=== PATIENT | female | born 1995 | race Caucasian/White ===

== ENCOUNTER 2017-01-06 16:21 | Inpatient (IN) | payer BC ==
[~2017-01-06] VITALS: Ht 157.5 cm; Wt 80.3 kg
[2017-01-06 18:51] VITALS: Ht 157.5 cm; Wt 80.3 kg
[2017-01-06 18:52] VITALS: BP 107/59; PULSE 98; RESP 20
[2017-01-06 18:59] VITALS: PULSE 98
[2017-01-06 19:40] VITALS: BP 107/59; RESP 15
[2017-01-06] MEDS ORDERED: no medications (19:41)
[2017-01-06 20:28] VITALS: PULSE 98
[2017-01-06] MEDS ORDERED: morphine 2 MG INJ IV PRN (20:30)
[2017-01-06] MEDS: SOD CHLORIDE 0.9% 1,000 ML IV SCH (21:20)
[2017-01-06] MEDS: PIPER-TAZO 3.375 GM IV (PMX) 100 ML IVPB SCH (21:20)
[2017-01-06] MEDS: ACETAMINOPHEN 325 MG TAB PO PRN (22:45)
[2017-01-07] VITALS (19 sets, daily range): BP systolic 92–137; BP diastolic 40–66; PULSE 111–153; RESP 15–22
[2017-01-07] MEDS: PIPER-TAZO 3.375 GM IV (PMX) 100 ML IVPB SCH ×5 (00:35→23:20)
[2017-01-07] MEDS: ACETAMINOPHEN 325 MG TAB PO PRN ×3 (05:06→17:47)
[2017-01-07] MEDS: SOD CHLORIDE 0.9% 1,000 ML IV SCH ×3 (05:07→23:20)
[2017-01-07] MEDS: PANTOPRAZOLE 40 MG INJ IV SCH (05:07)
[2017-01-07 06:46] LABS: ADD SCAN DIFF NO
[2017-01-07 06:51] LABS: ABNORMAL IP MESSAGE 1; BASOPHILS % 0.1 % (0.0-2.0); EOSINOPHILS % 0.1 % (0.0-7.0); HEMATOCRIT 30.5 % (37.0-47.0); HEMOGLOBIN 10.1 g/dl (12.0-16.0); LYMPHOCYTES # 1.3 10^3/ul (0.8-2.9); LYMPHOCYTES % 6.5 % (15.0-51.0); MEAN CORPUSCULAR HEMOGLOBIN 29.4 pg (29.0-33.0); MEAN CORPUSCULAR HGB CONC 33.1 g/dl (32.0-37.0); MEAN CORPUSCULAR VOLUME 88.7 fl (82.0-101.0); MEAN PLATELET VOLUME 10.1 fl (7.4-10.4); MONOCYTE # 2.3 10^3/ul (0.3-0.9); MONOCYTES % 11.1 % (0.0-11.0); NEUTROPHIL # 16.5 10^3/ul (1.6-7.5); PLATELET COUNT 237 10^3/UL (140-415); RED BLOOD COUNT 3.44 10^6/ul (4.20-5.40); RED CELL DISTRIBUTION WIDTH 13.8 % (11.5-14.5); WHITE BLOOD COUNT 20.6 10^3/ul (4.8-10.8)
[2017-01-07 07:13] LABS: ALBUMIN 2.6 g/dl (3.3-4.9)
[2017-01-07 07:16] LABS: ALBUMIN/GLOBULIN RATIO 0.83; BILIRUBIN,INDIRECT 0.4 mg/dl (0-1.1); BILIRUBIN,TOTAL 0.4 mg/dl (0.2-1.3); CREATININE 0.56 mg/dl (0.44-1.00); TOTAL PROTEIN 5.7 g/dl (6.1-8.1)
[2017-01-07 07:17] LABS: CALCIUM 7.5 mg/dl (8.4-10.2)
--- NOTE | 2017-01-07 13:15 | HP ---
Date/Time of Note Date/Time of Note DATE: 01/07/17 TIME: 13:03 Assessment/Plan VTE Prophylaxis VTE Prophylaxis Intervention: ambulation Lines/Catheters IV C[facility]ter Type [facility]from [facility] Peripheral IV Urinary Cath still in place: No Assessment/Plan Chief Complaint/Hosp Course 1. Sepsis due to UTI 2. Hypokalemia 3. Obesity 4. tachycardia Problems: Assessment/Plan 1. Continue zosyn, add Rocephin IV q 24 hours 2. Continue IV hydration 3. Continue telemetry monitoring 4. K replacement 5. Monitor lact acid and WBC tomorrow HPI/ROS Admit Date/Time Admit Date/Time Jan 06, 2017 at 18:31 Hx of Present Illness pt reported that she started to feel pain in left hypochondrial area on . Then patient was seen in [facility] ED on 01/06/17 with left side pain. She was started on IV fluids and Rocephin. Per insurance request she was transferred and admitted to [facility] later ROS Constitutional: chills Eyes: no complaints ENT: no complaints Respiratory: no complaints Cardiovascular: no complaints (rarely), palpitations Gastrointestinal: no complaints Genitourinary: dysuria, flank pain Musculoskeletal: no complaints Skin: no complaints Neurologic: no complaints Endocrine: no complaints Lymphatic: no complaints Psychological: no complaints Immunologic: no complaints PMH/Family/Social Past Medical History Medical History: no pertinent history Past Surgical History Past Surgical Hx: no surgical history Family History Significant Family History: hypertension Social History has a child Alcohol Use: none Smoking Status: Never smoker Drug Use: none Exam/Review of Systems Vital Signs Vitals Vital Signs Date Time Temp Pulse Resp B/P Pulse Ox O2 Delivery O2 Flow Rate FiO2 01/07/17 12:49 102.7 153 18 120/60 98 Room Air Intake and Output 01/06/17 01/06/17 01/07/17 15:00 23:00 07:00 Intake Total 2100 ml Balance 2100 ml Exam Constitutional: alert, oriented, well developed Psych: nl mood/affect, no complaints Head: normocephalic Eyes: nl conjunctiva ENMT: nl external ears & nose Neck: supple Respiratory: clear to auscultation Cardiovascular: other (tachycardia), regular rate and rhythm Gastrointestinal: soft Genitourinary - Female: CVA tenderness (left), nl external genitalia Musculoskeletal: nl extremities to inspection Extremities: normal pulses Neurological: G[employer] IN[employer]IGATOR II-XII intact, nl mental status Skin: nl turgor Lymph: nl lymph nodes Labs Result Diagram: 01/07/1761401/07/17614 Medications Medications Current Medications Acetaminophen 650 mg 650 mg Q6H PRN PO PAIN AND OR ELEVATED TEMP Last administered on 01/07/17 11:39; Admin Dose 650 MG; Start 01/06/17 at 20:30 Sodium Chloride (NS) 1,000 ml @ 100 mls/hr Q10H IV Last administered on 05:07; Admin Dose 100 MLS/HR; Start 01/06/17 at 20:30 Morphine Sulfate (morphine) 2 mg Q4H PRN IV PAIN; Start 01/06/17 at 20:30 Pantoprazole 40 mg 40 mg DAILY@06 IV Last administered on 01/07/17 05:07; Admin Dose 40 MG; Start 01/07/17 at 06:00 Piperacillin Sod/ Tazobactam Sod (Zosyn 3.375gm/ 100 ml (Pmx)) 100 ml @ 200 mls /hr Q6 IVPB Last administered on 01/07/17 11:40; Admin Dose 200 MLS/HR; Start 01/06/17 at 21:30 ARGELIA AL Jan 07, 2017 13:13
[2017-01-07] MEDS ORDERED: LEVOFLOXACIN 500MG/D5W (PMX) 100 ML IVPB SCH (13:30)
[2017-01-07] MEDS ORDERED: POTASSIUM CHLORIDE (SR) 20 MEQ TAB PO STA (16:11)
[2017-01-07] MEDS ORDERED: SOD CHLORIDE 0.9% 500 ML IV ONE (16:30)
[2017-01-07] MEDS ORDERED: LORAZEPAM 2 MG INJ IV ONE (16:30)
[2017-01-07] MEDS ORDERED: TOBRAMYCIN 80 MG INJ IV ONE (18:00)
[2017-01-07] MEDS ORDERED: TOBRAMYCIN 100 MG in SOD CHLORIDE 0.9% 100 ML IVPB SCH (18:30)
[2017-01-07 21:22] LABS: FREE T3 3.69 pg/ml (2.77-5.27)
[2017-01-08] VITALS (12 sets, daily range): BP systolic 103–119; BP diastolic 58–72; PULSE 96–132; RESP 16–20
[2017-01-08] MEDS: METOPROLOL 5 MG INJ IV PRN ×2 (03:37→12:16)
[2017-01-08] MEDS: ACETAMINOPHEN 325 MG TAB PO PRN ×2 (03:37→17:14)
[2017-01-08] MEDS: PIPER-TAZO 3.375 GM IV (PMX) 100 ML IVPB SCH ×3 (04:57→17:29)
[2017-01-08] MEDS: PANTOPRAZOLE 40 MG INJ IV SCH (04:57)
[2017-01-08 06:20] LABS: ADD UMIC YES; URINE BILIRUBIN (Dip) NEGATIVE (NEGATIVE); URINE BLOOD (Dip) TRACE (NEGATIVE); URINE COLOR LT. YELLOW (YELLOW); URINE GLUCOSE (Dip) NEGATIVE (NEGATIVE); URINE KETONES (Dip) 15 (NEGATIVE); URINE LEUKOCYTE ESTERASE (Dip) NEGATIVE (NEGATIVE); URINE NITRITE (Dip) NEGATIVE (NEGATIVE); URINE TOTAL PROTEIN (Dip) NEGATIVE (NEGATIVE); URINE UROBILINOGEN (Dip) 0.2 E.U./dL (0.1-1.0)
--- NOTE | 2017-01-08 06:54 | CONS ---
DATE OF ADMISSION: 01/07/2017 DATE OF CONSULTATION: 01/07/2017 TYPE OF CONSULTATION: Cardiology REASON FOR CONSULTATION: Tachyarrhythmia. REQUESTING PHYSICIAN: Pasquale Gusman MD HISTORY OF PRESENT ILLNESS: Ms. Kim is a 21-year-old female without significant past medical history who initially presented to an outside hospital , [facility], with complaints of flank pain on the left side. At the outside hospital, the patient was noted to have a temperature of 102.9, pulse 150, blood pressure 137/74, respiratory rate 20. The patient's electrocardiogram revealed rhythm most consistent with sinus tachycardia, rate of 143, normal axis, normal intervals, nonspecific ST-T abnormalities diffusely. The patient was diagnosed with a kidney infection after a positive UA treated with levofloxacin and ceftriaxone and then transferred to [facility] due to insurance reasons. Since admit to the [facility], the patient has had recurrent fevers as high as 103.2. In this setting, the patient has had tachycardia up to 150s, as high as 153 documented. At this time, patient denies chest pain, shortness of breath, prior palpitations, syncope or cardiac pathology. PAST MEDICAL HISTORY: As above in HPI. MEDICATIONS CURRENTLY IN HOSPITAL: 1. Levofloxacin 100 mg. 2. Protonix 40 mg IV daily. 3. Zosyn q.6 IV 4. Tylenol p.r.n. 5. IV fluid hydration at 100 mL/hour. 6. Morphine p.r.n. ALLERGIES: NO KNOWN DRUG ALLERGIES. SOCIAL HISTORY: No tobacco, ETOH or illicit drug use. FAMILY HISTORY: Negative for sudden cardiac or early CAD. REVIEW OF SYSTEMS: As above in HPI. CONSTITUTIONAL: Positive fevers and chills. PULMONARY: No current shortness of breath. CARDIOVASCULAR: No current chest pain, no palpitations. GASTROINTESTINAL: No vomiting. GENITOURINARY: Flank pain. PSYCHIATRIC: No documented psych history. NEUROLOGIC: No documented history of CVA. ENDOCRINE: No documented history of thyroid disease. PHYSICAL EXAMINATION: VITAL SIGNS: Temperature current 102.7, blood pressure 120/60, pulse most recently in the 110 to 115 range, consistent with sinus tachycardia, saturating 98% on room air. GENERAL: The patient is alert, awake, in no acute distress. NECK: JVP approximately 8 cm water. CHEST: Fair air movement throughout. HEART: Tachycardic, regular rhythm, normal S1, S2, a I/ systolic murmur, nondisplaced PMI. ABDOMEN: Positive bowel sounds, soft. No CVA tenderness. EXTREMITIES: No edema, 1+ pulses bilaterally posterior tibial. LABORATORIES: As above in HPI, with most recent from today, sodium 137, potassium 3.0, creatinine 0.56, BUN 6. AST 15, ALT 26. White blood cell count 20.6, hemoglobin 10.1, platelet count 237. IMAGING STUDIES: No imaging studies for my review at this time. ECG: As above in HPI. No further electrocardiograms for my review at this time. IMPRESSION: 1. Tachyarrhythmia, most consistent with sinus tachycardia at this time in the setting of fevers and pain. 2. Abnormal electrocardiogram from outside hospital with nonspecific ST-T abnormalities. 3. Probable pyelonephritis. 4. Anemia. 5. Leukocytosis. 6. Hypokalemia. RECOMMENDATIONS: 1. At this time, would maintain the patient on telemetry monitoring to follow rhythm and rate control closely. 2. To have aggressive treatment of the patient's fevers. 3. Continue the patient's IV fluid hydration and we will give an additional bolus of IV fluid. 4. We will check a 2D echocardiogram to further reassess the patient's ejection fraction, wall motion and any major valve abnormalities. 5. Check a TSH to be sure that there is no concurrent subclinical hyperthyroidism contributing to any tachyarrhythmias. 6. We will replete the patient's potassium. 7. We will continue the patient's antibiotics and follow up all culture data. 8. We will additionally check a fasting lipid panel for general risk stratification. 9. We will continue to check serial EKGs, thus an EKG in the morning, EKG for any complaints of chest pain or change in rhythm. Thank you for allowing me to take part in the care of this patient. I will continue to follow along very closely with you with further recommendations to be made as the patient progresses through her inpatient hospital clinical course. Dictated By: PHU DELACRUZ/CECILIA Conf#: [id number] DID#: [id number] CC: PASQUALE GUSMAN MD;*EndCC* MTDD
[2017-01-08 07:00] LABS: BACTERIA,URINE FEW
[2017-01-08 07:12] LABS: ADD SCAN DIFF NO
[2017-01-08 07:29] LABS: ABNORMAL IP MESSAGE 1; BASOPHIL # 0.1 10^3/ul (0.0-0.1); BASOPHILS % 0.2 % (0.0-2.0); EOSINOPHILS # 0.1 10^3/ul (0.0-0.5); EOSINOPHILS % 0.4 % (0.0-7.0); HEMATOCRIT 29.4 % (37.0-47.0); HEMOGLOBIN 9.5 g/dl (12.0-16.0); LYMPHOCYTES # 3.8 10^3/ul (0.8-2.9); LYMPHOCYTES % 17.7 % (15.0-51.0); MEAN CORPUSCULAR HGB CONC 32.3 g/dl (32.0-37.0); MEAN CORPUSCULAR VOLUME 89.6 fl (82.0-101.0); MEAN PLATELET VOLUME 10.4 fl (7.4-10.4); MONOCYTE # 2.5 10^3/ul (0.3-0.9); MONOCYTES % 11.5 % (0.0-11.0); NEUTROPHILS % 69.6 % (39.0-77.0); PLATELET COUNT 283 10^3/UL (140-415); RED BLOOD COUNT 3.28 10^6/ul (4.20-5.40); RED CELL DISTRIBUTION WIDTH 13.9 % (11.5-14.5); WHITE BLOOD COUNT 21.7 10^3/ul (4.8-10.8)
[2017-01-08 07:41] LABS: CALCIUM 8.2 mg/dl (8.4-10.2); CREATININE 0.61 mg/dl (0.44-1.00); POTASSIUM 4.2 mmol/L (3.5-5.1)
[2017-01-08 07:53] LABS: CHOL/HDL RATIO 4.9 RATIO
[2017-01-08] MEDS: SOD CHLORIDE 0.9% 1,000 ML IV SCH ×2 (12:15→20:55)
--- NOTE | 2017-01-08 12:52 | PN ---
Date/Time of Note Date/Time of Note DATE: 01/08/17 TIME: 12:34 Assessment/Plan VTE Prophylaxis VTE Prophylaxis Intervention: ambulation Lines/Catheters IV C[facility]ter Type (from [facility]): Peripheral IV Urinary Cath still in place: No Assessment/Plan Chief Complaint/Hosp Course 1. Sepsis due to unknown source 2. Obesity 3. tachycardia Problems: Assessment/Plan 1. Continue telemetry monitoring 2. Continue a/b, Dr Varela for ID consult 3. CT scan of abdomen without contrast to find source of sepsis, pt is not 4. Chest X ray 5. LAbs inc lactic acid tomorrow Subjective 24 Hr Interval Summary Constitutional: improved, no complaints Respiratory: no complaints Cardiovascular: no complaints Genitourinary: no complaints Musculoskeletal: no complaints Exam/Review of Systems Vital Signs Vitals Vital Signs Date Time Temp Pulse Resp B/P Pulse Ox O2 Delivery O2 Flow Rate FiO2 01/08/17 12:15 132 01/08/17 11:21 98.1 18 112/62 96 01/08/17 03:34 Room Air Intake and Output 01/07/17 01/07/17 01/08/17 15:00 23:00 07:00 Intake Total 2200 ml 2382.5 ml Balance 2200 ml 2382.5 ml Exam Constitutional: alert, oriented Psych: no complaints Head: normocephalic Eyes: nl conjunctiva ENMT: nl external ears & nose Neck: supple Respiratory: clear to auscultation Cardiovascular: other (tachycardia), regular rate and rhythm Gastrointestinal: soft Genitourinary - Female: nl external genitalia Musculoskeletal: nl extremities to inspection Results Result Diagram: 01/08/17 0620 01/08/17 0620 Results 24 hrs Laboratory Tests Test 01/07/17 14:00 01/07/17 19:50 01/07/17 20:35 01/08/17 06:20 Lactic Acid Level 1.6 0.9 Thyroid Stimulating Hormone (TSH) 0.118 L Urine Color LT. YELLOW Urine Clarity CLEAR Urine pH 6.5 Urine Specific [place] 1.010 Urine Ketones 15 Urine Nitrite NEGATIVE Urine Bilirubin NEGATIVE Urine Urobilinogen 0.2 E.U./dL Urine Leukocyte Esterase NEGATIVE Urine Microscopic RBC 2-5 Urine Microscopic WBC 2-5 Urine Epithelial Cells FEW Urine Bacteria FEW Urine Hemoglobin TRACE Urine Glucose NEGATIVE Urine Total Protein NEGATIVE Free Thyroxine 1.53 Thyroxine (T4) 8.1 Free Triiodothyronine (T3) pg/mL 3.69 White Blood Count 21.7 H Red Blood Count 3.28 L Hemoglobin 9.5 L Hematocrit 29.4 L Mean Corpuscular Volume 89.6 Mean Corpuscular Hemoglobin 29.0 Mean Corpuscular Hemoglobin Concent 32.3 Red Cell Distribution Width 13.9 Platelet Count 283 Mean Platelet Volume 10.4 Neutrophils % 69.6 Lymphocytes % 17.7 Monocytes % 11.5 H Eosinophils % 0.4 Basophils % 0.2 Nucleated Red Blood Cells % 0.0 Neutrophils # 15.0 H Lymphocytes # 3.8 H Monocytes # 2.5 H Eosinophils # 0.1 Basophils # 0.1 Nucleated Red Blood Cells # 0.0 Sodium Level 137 Potassium Level 4.2 Chloride Level 110 Carbon Dioxide Level 24 Anion Gap 7 L Blood Urea Nitrogen 5 L Creatinine 0.61 Glucose Level 106 Calcium Level 8.2 L Triglycerides Level 88 Cholesterol Level 109 LDL Cholesterol, Calculated 69 HDL Cholesterol 22 L Cholesterol/HDL Ratio 4.9 Medications Medications Current Medications Acetaminophen 650 mg 650 mg Q6H PRN PO PAIN AND OR ELEVATED TEMP Last administered on 01/08/17 03:37; Admin Dose 650 MG; Start 01/06/17 at 20:30 Sodium Chloride (NS) 1,000 ml @ 100 mls/hr Q10H IV Last administered on 12:15; Admin Dose 100 MLS/HR; Start 01/06/17 at 20:30 Morphine Sulfate (morphine) 2 mg Q4H PRN IV PAIN; Start 01/06/17 at 20:30 Pantoprazole 40 mg 40 mg DAILY@06 IV Last administered on 01/08/17 04:57; Admin Dose 40 MG; Start 01/07/17 at 06:00 Piperacillin Sod/ Tazobactam Sod (Zosyn 3.375gm/ 100 ml (Pmx)) 100 ml @ 200 mls /hr Q6 IVPB Last administered on 01/08/17 11:25; Admin Dose 200 MLS/HR; Start 01/06/17 at 21:30 Metoprolol Tartrate (Lopressor) 5 mg Q4 PRN IV HR>110 Hold SBP<100 Last administered on 01/08/17 12:16; Admin Dose 5 MG; Start 01/07/17 at 16:30 ARGELIA AL Jan 08, 2017 12:52
[2017-01-08] MEDS ORDERED: BARIUM SULF 2% 450 ML BTL (BERRY SMOOTHIE) PO ONE (13:00)
--- NOTE | 2017-01-08 13:44 | CONS ---
Date/Time of Note Date/Time of Note DATE: 01/08/17 TIME: 13:40 Assessment/Plan Assessment/Plan Chief Complaint/Hosp Course IMPRESSION: 1. Tachyarrhythmia, most consistent with sinus tachycardia at this time in the setting of fevers and pain.-continues to have 2. Abnormal electrocardiogram from outside hospital with nonspecific ST-T abnormalities. 3. Probable pyelonephritis. 4. Anemia. 5. Leukocytosis. 6. Hypokalemia. 7. ? sick euthyroid-suppressed TSH/ NL Free t4 Recc: -Tele -serial ecg's -Will f/u echo done today -IVP PRN BB -Give additional IVF hydration -Continue abx's and f/u cx data -Treat fevers Problems: Consultation Date/Type/Reason Admit Date/Time Jan 07, 2017 at 13:46 Initial Consult Date 01/07/2017 Type of Consultation: Cardiology Reason for Consultation tachycardia Referring Provider: ASHWIN GUSMAN MD Exam/Review of Systems Vital Signs Vitals Vital Signs Date Time Temp Pulse Resp B/P Pulse Ox O2 Delivery O2 Flow Rate FiO2 01/08/17 12:15 132 01/08/17 11:21 98.1 18 112/62 96 01/08/17 03:34 Room Air Intake and Output 01/07/17 01/07/17 01/08/17 15:00 23:00 07:00 Intake Total 2200 ml 2382.5 ml Balance 2200 ml 2382.5 ml Exam Review of Systems: CONSTITUTIONAL: No fevers, chills. PULMONARY: No sob CARDIOVASCULAR: No chest pain/palpitations GASTROINTESTINAL: No nausea/vomiting. GENITOURINARY: No hematuria/dysuria. MUSCULOSKELETAL: No myagias/arthalgias. PSYCHIATRIC: The patient denies depression. NEUROLOGIC: No weakness Constitutional: alert, oriented Psych: no complaints Head: normocephalic ENMT: mucosa pink and moist Neck: jvd (9 cm water), supple Respiratory: diminished breath sounds (at bases/B) Cardiovascular: regular rate and rhythm Gastrointestinal: non-tender, soft Musculoskeletal: muscle tone (normal) Extremities: edema (none) Neurological: other (No focal deficits) Results Result Diagram: 01/08/17 0620 01/08/17 0620 Results 24 hrs Laboratory Tests Test 01/07/17 14:00 01/07/17 19:50 01/07/17 20:35 01/08/17 06:20 Lactic Acid Level 1.6 0.9 Thyroid Stimulating Hormone (TSH) 0.118 L Urine Color LT. YELLOW Urine Clarity CLEAR Urine pH 6.5 Urine Specific [place] 1.010 Urine Ketones 15 Urine Nitrite NEGATIVE Urine Bilirubin NEGATIVE Urine Urobilinogen 0.2 E.U./dL Urine Leukocyte Esterase NEGATIVE Urine Microscopic RBC 2-5 Urine Microscopic WBC 2-5 Urine Epithelial Cells FEW Urine Bacteria FEW Urine Hemoglobin TRACE Urine Glucose NEGATIVE Urine Total Protein NEGATIVE Free Thyroxine 1.53 Thyroxine (T4) 8.1 Free Triiodothyronine (T3) pg/mL 3.69 White Blood Count 21.7 H Red Blood Count 3.28 L Hemoglobin 9.5 L Hematocrit 29.4 L Mean Corpuscular Volume 89.6 Mean Corpuscular Hemoglobin 29.0 Mean Corpuscular Hemoglobin Concent 32.3 Red Cell Distribution Width 13.9 Platelet Count 283 Mean Platelet Volume 10.4 Neutrophils % 69.6 Lymphocytes % 17.7 Monocytes % 11.5 H Eosinophils % 0.4 Basophils % 0.2 Nucleated Red Blood Cells % 0.0 Neutrophils # 15.0 H Lymphocytes # 3.8 H Monocytes # 2.5 H Eosinophils # 0.1 Basophils # 0.1 Nucleated Red Blood Cells # 0.0 Sodium Level 137 Potassium Level 4.2 Chloride Level 110 Carbon Dioxide Level 24 Anion Gap 7 L Blood Urea Nitrogen 5 L Creatinine 0.61 Glucose Level 106 Calcium Level 8.2 L Triglycerides Level 88 Cholesterol Level 109 LDL Cholesterol, Calculated 69 HDL Cholesterol 22 L Cholesterol/HDL Ratio 4.9 Medications Medications Current Medications Acetaminophen 650 mg 650 mg Q6H PRN PO PAIN AND OR ELEVATED TEMP Last administered on 01/08/17 03:37; Admin Dose 650 MG; Start 01/06/17 at 20:30 Sodium Chloride (NS) 1,000 ml @ 100 mls/hr Q10H IV Last administered on 12:15; Admin Dose 100 MLS/HR; Start 01/06/17 at 20:30 Morphine Sulfate (morphine) 2 mg Q4H PRN IV PAIN; Start 01/06/17 at 20:30 Pantoprazole 40 mg 40 mg DAILY@06 IV Last administered on 01/08/17 04:57; Admin Dose 40 MG; Start 01/07/17 at 06:00 Piperacillin Sod/ Tazobactam Sod (Zosyn 3.375gm/ 100 ml (Pmx)) 100 ml @ 200 mls /hr Q6 IVPB Last administered on 01/08/17 11:25; Admin Dose 200 MLS/HR; Start 01/06/17 at 21:30 Metoprolol Tartrate (Lopressor) 5 mg Q4 PRN IV HR>110 Hold SBP<100 Last administered on 01/08/17 12:16; Admin Dose 5 MG; Start 01/07/17 at 16:30 PHU GLASS Jan 08, 2017 13:44
[2017-01-08] MEDS ORDERED: SOD CHLORIDE 0.9% 500 ML IV ONE (14:00)
[2017-01-08] MEDS ORDERED: TOBRAMYCIN IV PER PHARMACY XX SCH (17:00)
--- NOTE | 2017-01-08 17:18 | RADRPT ---
Echocardiogram Report Patient Name: SUE CASTANO Gender: Female Date: 1995 Study Date: 08-Jan-2017 Actuarial Manager: NADJA Location: I Ref. Physician: PHU EDMOND Quality: Adequate Procedures: Transthoracic echocardiogram with complete 2D, M-Mode, and Doppler examination. Indications: Tachycardia. 2D/M Mode Doppler Measurement Value Normal Ranges Measurement Value Normal Ranges AoR Diam MM 2.8 cm AV Peak Phil 1.6 m/sec ACS MM 2.0 cm AV Peak PG 9.8 mmHg LVIDd 2D 4.8 3.5 - 5.6 cm LVOT Peak Phil 1.0 m/sec LVIDs 2D 3.0 2.1 - 4.1 cm LVOT Peak PG 3.6 mmHg LVPWd 2D 0.8 0.6 - 1.1 cm PV Peak Phil 1.1 m/sec IVSd 2D 0.9 0.6 - 1.1 cm PV Peak PG 5.0 mmHg EDV 2D 108.5 cm3 ESV 2D 27.5 cm3 LA Dimen 2D 3.7 2.3 - 4.0 cm Findings Left Ventricle: Normal left ventricular systolic function. Normal left ventricular cavity size. Normal left ventricular wall thickness. Ejection fraction is visually estimated at 55 %. Tissue Doppler/Mitral Doppler indices are indeterminate in this study due to the presence of tachycardia throughout exam time. E/E`=4. Right Ventricle: Normal right ventricular size. Normal right ventricular systolic function. Left Atrium: The left atrium is normal in size. Right Atrium: The right atrium is normal in size. Atrial Septum: Normal atrial septum. Ventricular septum: Normal/intact ventricular septum. Mitral Valve: Normal appearance and function of the mitral valve with trace physiologic regurgitation. Aortic Valve: Normal appearance of the aortic valve. No significant aortic stenosis or insufficiency. Tricuspid Valve: Normal appearance and function of the tricuspid valve with trace physiologic regurgitation. Normal right ventricular systolic pressure. Pulmonic Valve: Normal pulmonic valve appearance. There is trace pulmonic regurgitation. Pericardium: Normal pericardium with no significant pericardial effusion. Aorta: Normal aortic root. IVC: Normal size and normal respiratory collapse consistent with normal right atrial pressure. Pulmonary Artery: Normal pulmonary artery size. Conclusions 1.Normal left ventricular systolic function. Normal left ventricular cavity size. Normal left ventricular wall thickness. Ejection fraction is visually estimated at 55 %. Tissue Doppler/Mitral Doppler indices are indeterminate in this study due to the presence of tachycardia throughout exam time. E/E`=4. 2.Normal appearance and function of the mitral valve with trace physiologic regurgitation. 3.Normal appearance and function of the tricuspid valve with trace physiologic regurgitation. Normal right ventricular systolic pressure. 4.Normal pulmonic valve appearance. There is trace pulmonic regurgitation. Electronically Signed By: Phu Edmond 08-Jan-2017 17:17:39 -0700 Patient Name: SUE CASTANO Study Date: 08-Jan-2017 [id number]
--- NOTE | 2017-01-08 18:35 | CONS ---
Date/Time of Note Date/Time of Note DATE: 01/08/17 TIME: 18:16 Assessment/Plan Assessment/Plan Chief Complaint/Hosp Course ID PROGRESS NOTE ABX DAY #3 => Tobramycin IV + Zosyn 24H INTERVAL SUMMARY * CHART REVIEWED: 21 yo F w/flank pain onset 01/04/17-> fevers persisting presented to [facility] ED on 01/06/17 with left side pain. GM vitials TMax 103.9 WBC 22,100, tachycardia HR 143= Sinus tach, (+)UA 3+ Leuk Esterase, > 100 WBCs, Mod Bacteria, rare Amorph crystals, 1-25 RBCs. She was started on IV fluids and Rocephin + Levaquin. TNS to [facility] on 01/06. VPH Tmax 103.=. WBC 21.7 with normalization of Neuts% 69%. She is continued on IV ABX Tobra + Zosyn and has improved. PHYSICAL EXAMINATION: GENERAL:21 yo F w/obesity admit with acute flank pain HEENT: Unremarkable NECK: Supple, trachea midline. CHEST: Rise symmetrical, HEART: Pulse RRR ABDOMEN: Soft, non-tender EXTREMITIES: Warm, dry, no edema ID ASSESSMENT 21 yo F TNS from [facility] ED 01/06 with: 1. Acute Sepsis associated w/Fevers > 103.9, Leukocytosis w/increased Neuts%, Sinus tachycardia HR 143 due to #2 * 01/06/17 BCx VPH (-) 2. Acute Pyelonephritis associated w/flank pain since 01/04 * 01/05/17 UA @ [facility]: (+)UA 3+ Leuk Esterase, >100 WBCs, Mod Bacteria, rare Amorph crystals, 1-25 RBCs. 3. Obesity INVASIVES: PIV, ABX ALLERGY: KNDA CURRENT ABX: #3 => Tobramycin IV + Zosyn ID RECOMMENDATIONS 1. Overall she is improving on current ABX -- await results of final blood and urine cx from [facility]. 2. Will need the bacterial pathogen ID and sensitivities in order to make further recommendations on length of ABX course and ability to taper to POs. Thank you, will f/u tomorrow Problems: Consultation Date/Type/Reason Admit Date/Time Jan 07, 2017 at 13:46 Initial Consult Date Type of Consultation: ID Referring Provider: ASHWIN GUSMAN MD Exam/Review of Systems Vital Signs Vitals Vital Signs Date Time Temp Pulse Resp B/P Pulse Ox O2 Delivery O2 Flow Rate FiO2 01/08/17 16:15 110 01/08/17 15:12 100.2 18 119/72 99 01/08/17 03:34 Room Air Intake and Output 01/07/17 01/07/17 01/08/17 15:00 23:00 07:00 Intake Total 2200 ml 2382.5 ml Balance 2200 ml 2382.5 ml Results Result Diagram: 01/08/17 0620 01/08/17 0620 Results 24 hrs Laboratory Tests Test 01/07/17 19:50 01/07/17 20:35 01/08/17 06:20 Urine Color LT. YELLOW Urine Clarity CLEAR Urine pH 6.5 Urine Specific [place] 1.010 Urine Ketones 15 Urine Nitrite NEGATIVE Urine Bilirubin NEGATIVE Urine Urobilinogen 0.2 E.U./dL Urine Leukocyte Esterase NEGATIVE Urine Microscopic RBC 2-5 Urine Microscopic WBC 2-5 Urine Epithelial Cells FEW Urine Bacteria FEW Urine Hemoglobin TRACE Urine Glucose NEGATIVE Urine Total Protein NEGATIVE Free Thyroxine 1.53 Thyroxine (T4) 8.1 Free Triiodothyronine (T3) pg/mL 3.69 White Blood Count 21.7 H Red Blood Count 3.28 L Hemoglobin 9.5 L Hematocrit 29.4 L Mean Corpuscular Volume 89.6 Mean Corpuscular Hemoglobin 29.0 Mean Corpuscular Hemoglobin Concent 32.3 Red Cell Distribution Width 13.9 Platelet Count 283 Mean Platelet Volume 10.4 Neutrophils % 69.6 Lymphocytes % 17.7 Monocytes % 11.5 H Eosinophils % 0.4 Basophils % 0.2 Nucleated Red Blood Cells % 0.0 Neutrophils # 15.0 H Lymphocytes # 3.8 H Monocytes # 2.5 H Eosinophils # 0.1 Basophils # 0.1 Nucleated Red Blood Cells # 0.0 Sodium Level 137 Potassium Level 4.2 Chloride Level 110 Carbon Dioxide Level 24 Anion Gap 7 L Blood Urea Nitrogen 5 L Creatinine 0.61 Glucose Level 106 Lactic Acid Level 0.9 Calcium Level 8.2 L Triglycerides Level 88 Cholesterol Level 109 LDL Cholesterol, Calculated 69 HDL Cholesterol 22 L Cholesterol/HDL Ratio 4.9 Medications Medications Current Medications Acetaminophen 650 mg 650 mg Q6H PRN PO PAIN AND OR ELEVATED TEMP Last administered on 01/08/17t 17:14; Admin Dose 650 MG; Start 01/06/17 at 20:30 Sodium Chloride (NS) 1,000 ml @ 125 mls/hr Q8H IV Last administered on 12:15; Admin Dose 100 MLS/HR; Start 01/06/17 at 20:30 Morphine Sulfate (morphine) 2 mg Q4H PRN IV PAIN; Start 01/06/17 at 20:30 Pantoprazole 40 mg 40 mg DAILY@06 IV Last administered on 01/08/17 04:57; Admin Dose 40 MG; Start 01/07/17 at 06:00 Piperacillin Sod/ Tazobactam Sod (Zosyn 3.375gm/ 100 ml (Pmx)) 100 ml @ 200 mls /hr Q6 IVPB Last administered on 01/08/17 17:29; Admin Dose 200 MLS/HR; Start 01/06/17 at 21:30 Metoprolol Tartrate (Lopressor) 5 mg Q4 PRN IV HR>110 Hold SBP<100 Last administered on 01/08/17 12:16; Admin Dose 5 MG; Start 01/07/17 at 16:30 Tobramycin TOBRAMYCIN PER PHARMACY NOTE XX ; Start 01/08/17 at 17:00 Tobramycin/Sodium Chloride (Tobramycin/NS) 110.75 ml @ 103.75 mls/hr Q24H IVPB ; Start 01/08/17 at 20:00 Miscellaneous Information (*Rx Drug Level Order Reminder*) RANDOM TOBRAMYCIN LEVEL 4... ONCE ONCE XX ; Start 01/09/17 at 05:00; Stop 01/09/17 at 05:01 CHRISTOPHER WAGONER NP Jan 08, 2017 18:26
--- NOTE | 2017-01-08 20:19 | RADRPT ---
PROCEDURE: XR Chest. CLINICAL INDICATION: Cough and fever. TECHNIQUE: Single frontal view. COMPARISON: None. FINDINGS: The lungs are clear. The heart size is normal. There is no pleural effusion. There is no pneumothorax. IMPRESSION: 1. Normal chest radiograph. RPTAT: QQ .Priyank Jimenez MD, Date Time Electronically viewed and signed by .Priyank Jimenez MD, on 01/08/2017 20:19 .R/
[2017-01-08] MEDS: TOBRAMYCIN IVPB SCH (20:54)
[2017-01-08] MEDS: SOD CHLORIDE 0.9% IVPB SCH (20:54)
--- NOTE | 2017-01-08 23:49 | CONS ---
DATE OF ADMISSION: 01/07/2017 DATE OF CONSULTATION: 01/08/2017 TYPE OF CONSULTATION: Infectious disease. REASON FOR CONSULTATION: Antibiotic management. HISTORY OF PRESENT ILLNESS: Charley Kim is a 21-year-old female who comes in with flank pain, o nset on 01/04/2017, with fevers persisting. She presented to [facility] emergency room with left-sided pain, temperature of 103.9, white count was 22,100. She had 3+ leukocyte esterase, great er than 100 white cells per high powered field. She was started on IV fluids, Rocephin, and Levaqui n. Transferred to [facility] on the . T-max of 103. White count was 21.7 with 69% po nico. She was placed on Zosyn and tobramycin and has improved significantly. PAST MEDICAL HISTORY: Operations as outlined. FAMILY HISTORY: Noncontributory, except for hypertension. SOCIAL HISTORY: She has 1 child. She does not smoke, drink, or abuse drugs. ALLERGIES: NONE TO PENICILLIN, SULFA, OR FOODS. MEDICATIONS: Per chart. REVIEW OF SYSTEMS: As per HPI. PHYSICAL EXAMINATION: GENERAL: The patient is a well-developed, well-nourished female who is alert, responsive, in no acu te distress. VITAL SIGNS: Stable. She is afebrile. SKIN: Without generalized rash. HEENT: Within normal limits. NECK: Supple. LYMPH NODES: None palpable. CHEST: Decreased breath sounds at the bases. HEART: Without murmur or gallop. ABDOMEN: Soft, nontender. She has mild flank tenderness, which she says has improved markedly on t he left. RECTAL AND GENITAL: Deferred. NEUROLOGICAL EVALUATION: No focal neurological abnormalities. IMPRESSION AND PLAN: The patient is a 21-year-old female with pyelonephritis who comes in in transf er from another facility. She is on Zosyn and tobramycin. In terms of her cultures, blood cultures are negative. We do not have a urine culture. Will continue her on current therapy. Her white co unt today is 21.7. I will dictate my findings to ____ and to Dr. Edmond. Dictated By: NAEEM LEON MD, JD/CECILIA Conf#: [id number] DID#: [id number] CC: ASHWIN GUSMAN MD;*[facility]*
[2017-01-09] VITALS (15 sets, daily range): BP systolic 88–126; BP diastolic 49–74; PULSE 100–111; RESP 20–24
[2017-01-09] MEDS: PIPER-TAZO 3.375 GM IV (PMX) 100 ML IVPB SCH ×5 (00:37→23:03)
[2017-01-09] MEDS: PANTOPRAZOLE 40 MG INJ IV SCH (05:05)
[2017-01-09] MEDS: SOD CHLORIDE 0.9% 1,000 ML IV SCH ×4 (05:06→23:02)
[2017-01-09 06:46] LABS: ADD SCAN DIFF NO
[2017-01-09 06:52] LABS: ABNORMAL IP MESSAGE 1; BASOPHIL # 0.1 10^3/ul (0.0-0.1); BASOPHILS % 0.3 % (0.0-2.0); EOSINOPHILS # 0.2 10^3/ul (0.0-0.5); HEMATOCRIT 27.6 % (37.0-47.0); HEMOGLOBIN 9.2 g/dl (12.0-16.0); LYMPHOCYTES # 3.6 10^3/ul (0.8-2.9); LYMPHOCYTES % 23.2 % (15.0-51.0); MEAN CORPUSCULAR HEMOGLOBIN 29.2 pg (29.0-33.0); MEAN CORPUSCULAR HGB CONC 33.3 g/dl (32.0-37.0); MEAN CORPUSCULAR VOLUME 87.6 fl (82.0-101.0); MEAN PLATELET VOLUME 10.1 fl (7.4-10.4); MONOCYTE # 1.5 10^3/ul (0.3-0.9); MONOCYTES % 9.8 % (0.0-11.0); NEUTROPHILS % 64.8 % (39.0-77.0); PLATELET COUNT 300 10^3/UL (140-415); RED BLOOD COUNT 3.15 10^6/ul (4.20-5.40); WHITE BLOOD COUNT 15.4 10^3/ul (4.8-10.8)
[2017-01-09 07:03] LABS: POTASSIUM 3.6 mmol/L (3.5-5.1)
[2017-01-09 07:05] LABS: CREATININE 0.53 mg/dl (0.44-1.00)
--- NOTE | 2017-01-09 13:15 | CONS ---
Date/Time of Note Date/Time of Note DATE: 01/09/17 TIME: 13:12 Assessment/Plan Assessment/Plan Chief Complaint/Hosp Course IMPRESSION: 1. Tachyarrhythmia, most consistent with sinus tachycardia at this time in the setting of fevers and pain.-continues to have but improving. Echo 01/08 EF 55 2. Abnormal electrocardiogram from outside hospital with nonspecific ST-T abnormalities. 3. Probable pyelonephritis. 4. Anemia. 5. Leukocytosis. 6. Hypokalemia. 7. ? sick euthyroid-suppressed TSH/ NL Free t4 Recc: -Tele -serial ecg's -IVP PRN BB -Continue IVF hydration -Continue abx's and f/u cx data -Treat fevers/follow fever curve Problems: Consultation Date/Type/Reason Admit Date/Time Jan 07, 2017 at 13:46 Initial Consult Date 01/07/2017 Type of Consultation: Cardiology Reason for Consultation tachycardia Referring Provider: ASHWIN GUSMAN MD Exam/Review of Systems Vital Signs Vitals Vital Signs Date Time Temp Pulse Resp B/P Pulse Ox O2 Delivery O2 Flow Rate FiO2 01/09/17 12:29 102 01/09/17 11:33 98.2 20 124/67 99 01/08/17 03:34 Room Air Intake and Output 01/08/17 01/08/17 01/09/17 15:00 23:00 07:00 Intake Total 100 ml 2050 ml 600 ml Balance 100 ml 2050 ml 600 ml Exam Review of Systems: CONSTITUTIONAL: No fevers, chills. PULMONARY: No sob CARDIOVASCULAR: No chest pain/palpitations GASTROINTESTINAL: No nausea/vomiting. GENITOURINARY: No hematuria/dysuria. MUSCULOSKELETAL: No myagias/arthalgias. PSYCHIATRIC: The patient denies depression. NEUROLOGIC: No weakness Constitutional: alert Psych: no complaints Head: normocephalic ENMT: mucosa pink and moist Neck: jvd (8-9 cm water), supple Respiratory: diminished breath sounds (at bases/B) Cardiovascular: other (tachycardic, regular rhythm) Gastrointestinal: non-tender, soft Musculoskeletal: muscle tone (normal) Extremities: edema (none) Neurological: other (No focal deficits) Results Result Diagram: 01/09/17 0611 01/09/17 0611 Results 24 hrs Laboratory Tests Test 01/09/17 06:11 White Blood Count 15.4 #H Red Blood Count 3.15 L Hemoglobin 9.2 L Hematocrit 27.6 L Mean Corpuscular Volume 87.6 Mean Corpuscular Hemoglobin 29.2 Mean Corpuscular Hemoglobin Concent 33.3 Red Cell Distribution Width 14.0 Platelet Count 300 Mean Platelet Volume 10.1 Neutrophils % 64.8 Lymphocytes % 23.2 Monocytes % 9.8 Eosinophils % 1.0 Basophils % 0.3 Nucleated Red Blood Cells % 0.0 Neutrophils # 10.0 H Lymphocytes # 3.6 H Monocytes # 1.5 H Eosinophils # 0.2 Basophils # 0.1 Nucleated Red Blood Cells # 0.0 Sodium Level 140 Potassium Level 3.6 Chloride Level 106 Carbon Dioxide Level 22 Anion Gap 16 # Blood Urea Nitrogen 4 L Creatinine 0.53 Glucose Level 98 Lactic Acid Level 0.8 Calcium Level 8.0 L Random Tobramycin Level 0.8 Medications Medications Current Medications Acetaminophen 650 mg 650 mg Q6H PRN PO PAIN AND OR ELEVATED TEMP Last administered on 01/08/17 17:14; Admin Dose 650 MG; Start 01/06/17 at 20:30 Sodium Chloride (NS) 1,000 ml @ 125 mls/hr Q8H IV Last administered on 05:06; Admin Dose 125 MLS/HR; Start 01/06/17 at 20:30 Morphine Sulfate (morphine) 2 mg Q4H PRN IV PAIN; Start 01/06/17 at 20:30 Pantoprazole 40 mg 40 mg DAILY@06 IV Last administered on 01/09/17 05:05; Admin Dose 40 MG; Start 01/07/17 at 06:00 Piperacillin Sod/ Tazobactam Sod (Zosyn 3.375gm/ 100 ml (Pmx)) 100 ml @ 200 mls /hr Q6 IVPB Last administered on 01/09/17 11:43; Admin Dose 200 MLS/HR; Start 01/06/17 at 21:30 Metoprolol Tartrate (Lopressor) 5 mg Q4 PRN IV HR>110 Hold SBP<100 Last administered on 01/08/17 12:16; Admin Dose 5 MG; Start 01/07/17 at 16:30 Tobramycin TOBRAMYCIN PER PHARMACY NOTE XX ; Start 01/08/17 at 17:00 Tobramycin/Sodium Chloride (Tobramycin/NS) 110.75 ml @ 103.75 mls/hr Q24H IVPB Last administered on 01/08/17t 20:54; Admin Dose 103.75 MLS/HR; Start at 20:00 PHU GLASS Jan 09, 2017 13:14
--- NOTE | 2017-01-09 18:18 | PN ---
Date/Time of Note Date/Time of Note DATE: 01/09/17 TIME: 18:18 Assessment/Plan VTE Prophylaxis VTE Prophylaxis Intervention: other Lines/Catheters IV Catheter Type (from Nrs): Peripheral IV Urinary Cath still in place: No Reason Cath still needed: other (indicate) Assessment/Plan Chief Complaint/Hosp Course sepsis uti plan antibiotic ck ct abd Problems: Subjective 24 Hr Interval Summary Respiratory: no complaints Cardiovascular: no complaints Exam/Review of Systems Vital Signs Vitals Vital Signs Date Time Temp Pulse Resp B/P Pulse Ox O2 Delivery O2 Flow Rate FiO2 01/09/17 16:23 100 01/09/17 15:33 97.9 20 116/67 99 01/08/17 03:34 Room Air Intake and Output 01/08/17 01/08/17 01/09/17 15:00 23:00 07:00 Intake Total 100 ml 2050 ml 600 ml Balance 100 ml 2050 ml 600 ml Exam Neck: supple Respiratory: clear to auscultation Gastrointestinal: soft Results Result Diagram: 01/09/17 0611 01/09/17 0611 Results 24 hrs Laboratory Tests Test 01/09/17 06:11 White Blood Count 15.4 #H Red Blood Count 3.15 L Hemoglobin 9.2 L Hematocrit 27.6 L Mean Corpuscular Volume 87.6 Mean Corpuscular Hemoglobin 29.2 Mean Corpuscular Hemoglobin Concent 33.3 Red Cell Distribution Width 14.0 Platelet Count 300 Mean Platelet Volume 10.1 Neutrophils % 64.8 Lymphocytes % 23.2 Monocytes % 9.8 Eosinophils % 1.0 Basophils % 0.3 Nucleated Red Blood Cells % 0.0 Neutrophils # 10.0 H Lymphocytes # 3.6 H Monocytes # 1.5 H Eosinophils # 0.2 Basophils # 0.1 Nucleated Red Blood Cells # 0.0 Sodium Level 140 Potassium Level 3.6 Chloride Level 106 Carbon Dioxide Level 22 Anion Gap 16 # Blood Urea Nitrogen 4 L Creatinine 0.53 Glucose Level 98 Lactic Acid Level 0.8 Calcium Level 8.0 L Random Tobramycin Level 0.8 Medications Medications Current Medications Acetaminophen 650 mg 650 mg Q6H PRN PO PAIN AND OR ELEVATED TEMP Last administered on 01/08/17t 17:14; Admin Dose 650 MG; Start 01/06/17 at 20:30 Sodium Chloride (NS) 1,000 ml @ 125 mls/hr Q8H IV Last administered on 13:54; Admin Dose 125 MLS/HR; Start 01/06/17 at 20:30 Morphine Sulfate (morphine) 2 mg Q4H PRN IV PAIN; Start 01/06/17 at 20:30 Pantoprazole 40 mg 40 mg DAILY@06 IV Last administered on 01/09/17 05:05; Admin Dose 40 MG; Start 01/07/17 at 06:00 Piperacillin Sod/ Tazobactam Sod (Zosyn 3.375gm/ 100 ml (Pmx)) 100 ml @ 200 mls /hr Q6 IVPB Last administered on 01/09/17 17:09; Admin Dose 200 MLS/HR; Start 01/06/17 at 21:30 Metoprolol Tartrate (Lopressor) 5 mg Q4 PRN IV HR>110 Hold SBP<100 Last administered on 01/08/17 12:16; Admin Dose 5 MG; Start 01/07/17 at 16:30 Tobramycin TOBRAMYCIN PER PHARMACY NOTE XX ; Start 01/08/17 at 17:00 Tobramycin/Sodium Chloride (Tobramycin/NS) 110.75 ml @ 103.75 mls/hr Q24H IVPB Last administered on 01/08/17 20:54; Admin Dose 103.75 MLS/HR; Start at 20:00 ASHWIN GUSMAN MD Jan 09, 2017 18:18
--- NOTE | 2017-01-09 20:07 | CONS ---
Date/Time of Note Date/Time of Note DATE: 01/09/17 TIME: 19:53 Assessment/Plan Assessment/Plan Chief Complaint/Hosp Course ID PROGRESS NOTE ABX DAY #4 => Tobramycin IV + Zosyn 24H INTERVAL SUMMARY * Feels much better, high fevers resolved, denies chills, low grade temp today, WBC downtrend, N/V/flank/ABD pain resolved. * H BCx(-), Urine cx (-) 24H * [facility] staff have obtained her signature for release of [facility] 01/06 ED visit MICRO RESULTS upon arrival -- I discussed with the patient and her family that she can go home on ABX once she is Afebrile x48H, WBC count has resolved, AND ID team needs to obtain her urine and blood cx results from 01/06 in order to appropriately advise on whether she can go home on PO ABX vs needs IV ABX and for how long. PHYSICAL EXAMINATION: GENERAL:21 yo F w/obesity - sitting up on bed with family visiting no fevers, no pain HEENT: Unremarkable NECK: Supple, trachea midline. CHEST: Rise symmetrical, HEART: Pulse RRR ABDOMEN: Soft, non-tender EXTREMITIES: Warm, dry, no edema ID ASSESSMENT 21 yo F TNS from [facility] ED 01/06 with: 1. Acute Sepsis associated w/Fevers > 103.9, Leukocytosis w/increased Neuts%, Sinus tachycardia HR 143 due to #2 * 01/06/17 BCx [facility] (-) 2. Acute Pyelonephritis associated w/flank pain since 01/04 * 01/05/17 UA @ [facility]: (+)UA 3+ Leuk Esterase, >100 WBCs, Mod Bacteria, rare Amorph crystals, 1-25 RBCs. 3. Obesity INVASIVES: PIV, ABX ALLERGY: KNDA CURRENT ABX: #4 => Tobramycin IV + Zosyn ID RECOMMENDATIONS 1. Anticipate DC home when 1) Afebrile 48H, 2) WBC normalized; 3) MICRO results from [facility] 01/06 ED Urine & BCX obtained for ID Review. 2. [facility] staff have obtained her signature for release of [facility] 01/06 ED visit MICRO RESULTS, and have faxed request to [facility] medical records. 3. Will write order for [facility] staff to call medical records tomorrow and make sure MICRO results are faxed and placed on chart for ID team review. [facility] * Address: [address] [place] [address] * Problems: Consultation Date/Type/Reason Admit Date/Time Jan 07, 2017 at 13:46 Type of Consultation: id Referring Provider: ASHWIN GUSMAN MD Exam/Review of Systems Vital Signs Vitals Vital Signs Date Time Temp Pulse Resp B/P Pulse Ox O2 Delivery O2 Flow Rate FiO2 01/09/17 16:23 100 01/09/17 15:33 97.9 20 116/67 99 01/08/17 03:34 Room Air Intake and Output 01/08/17 01/08/17 01/09/17 15:00 23:00 07:00 Intake Total 100 ml 2050 ml 600 ml Balance 100 ml 2050 ml 600 ml Results Result Diagram: 01/09/17 0611 01/09/17 0611 Results 24 hrs Laboratory Tests Test 01/09/17 06:11 White Blood Count 15.4 #H Red Blood Count 3.15 L Hemoglobin 9.2 L Hematocrit 27.6 L Mean Corpuscular Volume 87.6 Mean Corpuscular Hemoglobin 29.2 Mean Corpuscular Hemoglobin Concent 33.3 Red Cell Distribution Width 14.0 Platelet Count 300 Mean Platelet Volume 10.1 Neutrophils % 64.8 Lymphocytes % 23.2 Monocytes % 9.8 Eosinophils % 1.0 Basophils % 0.3 Nucleated Red Blood Cells % 0.0 Neutrophils # 10.0 H Lymphocytes # 3.6 H Monocytes # 1.5 H Eosinophils # 0.2 Basophils # 0.1 Nucleated Red Blood Cells # 0.0 Sodium Level 140 Potassium Level 3.6 Chloride Level 106 Carbon Dioxide Level 22 Anion Gap 16 # Blood Urea Nitrogen 4 L Creatinine 0.53 Glucose Level 98 Lactic Acid Level 0.8 Calcium Level 8.0 L Random Tobramycin Level 0.8 Medications Medications Current Medications Acetaminophen 650 mg 650 mg Q6H PRN PO PAIN AND OR ELEVATED TEMP Last administered on 01/08/17 17:14; Admin Dose 650 MG; Start 01/06/17 at 20:30 Sodium Chloride (NS) 1,000 ml @ 125 mls/hr Q8H IV Last administered on 13:54; Admin Dose 125 MLS/HR; Start 01/06/17 at 20:30 Morphine Sulfate (morphine) 2 mg Q4H PRN IV PAIN; Start 01/06/17 at 20:30 Pantoprazole 40 mg 40 mg DAILY@06 IV Last administered on 01/09/17 05:05; Admin Dose 40 MG; Start 01/07/17 at 06:00 Piperacillin Sod/ Tazobactam Sod (Zosyn 3.375gm/ 100 ml (Pmx)) 100 ml @ 200 mls /hr Q6 IVPB Last administered on 01/09/17 17:09; Admin Dose 200 MLS/HR; Start 01/06/17 at 21:30 Metoprolol Tartrate (Lopressor) 5 mg Q4 PRN IV HR>110 Hold SBP<100 Last administered on 01/08/17 12:16; Admin Dose 5 MG; Start 01/07/17 at 16:30 Tobramycin TOBRAMYCIN PER PHARMACY NOTE XX ; Start 01/08/17 at 17:00 Tobramycin/Sodium Chloride (Tobramycin/NS) 110.75 ml @ 103.75 mls/hr Q24H IVPB Last administered on 01/08/17 20:54; Admin Dose 103.75 MLS/HR; Start at 20:00 CHRISTOPHER WAGONER NP Jan 09, 2017 20:03
[2017-01-09] MEDS: TOBRAMYCIN IVPB SCH (20:55)
[2017-01-09] MEDS: SOD CHLORIDE 0.9% IVPB SCH (20:55)
[2017-01-10] VITALS (10 sets, daily range): BP systolic 104–117; BP diastolic 65–73; PULSE 79–105; RESP 18–20
[2017-01-10] MEDS: PANTOPRAZOLE 40 MG INJ IV SCH (05:40)
[2017-01-10] MEDS: PIPER-TAZO 3.375 GM IV (PMX) 100 ML IVPB SCH ×2 (05:40→12:03)
[2017-01-10 06:07] LABS: ADD SCAN DIFF NO
[2017-01-10 06:18] LABS: BASOPHIL # 0.1 10^3/ul (0.0-0.1); BASOPHILS % 0.4 % (0.0-2.0); EOSINOPHILS # 0.3 10^3/ul (0.0-0.5); EOSINOPHILS % 2.5 % (0.0-7.0); HEMATOCRIT 30.5 % (37.0-47.0); LYMPHOCYTES # 3.7 10^3/ul (0.8-2.9); LYMPHOCYTES % 32.6 % (15.0-51.0); MEAN CORPUSCULAR HGB CONC 32.8 g/dl (32.0-37.0); MEAN CORPUSCULAR VOLUME 88.4 fl (82.0-101.0); MEAN PLATELET VOLUME 9.5 fl (7.4-10.4); MONOCYTE # 1.2 10^3/ul (0.3-0.9); MONOCYTES % 10.7 % (0.0-11.0); NEUTROPHIL # 5.8 10^3/ul (1.6-7.5); PLATELET COUNT 348 10^3/UL (140-415); RED BLOOD COUNT 3.45 10^6/ul (4.20-5.40); WHITE BLOOD COUNT 11.2 10^3/ul (4.8-10.8)
[2017-01-10 06:43] LABS: ALBUMIN 3.4 g/dl (3.3-4.9); ALBUMIN/GLOBULIN RATIO 0.89; BILIRUBIN,INDIRECT 0.1 mg/dl (0-1.1); BILIRUBIN,TOTAL 0.1 mg/dl (0.2-1.3); CALCIUM 8.8 mg/dl (8.4-10.2); CREATININE 0.53 mg/dl (0.44-1.00); POTASSIUM 4.3 mmol/L (3.5-5.1); TOTAL PROTEIN 7.2 g/dl (6.1-8.1)
[2017-01-10] MEDS: SOD CHLORIDE 0.9% 1,000 ML IV SCH ×2 (12:08→12:48)
--- NOTE | 2017-01-10 14:18 | CONS ---
Date/Time of Note Date/Time of Note DATE: 01/10/17 TIME: 14:17 Assessment/Plan Assessment/Plan Chief Complaint/Hosp Course IMPRESSION: 1. Tachyarrhythmia, most consistent with sinus tachycardia at this time in the setting of fevers and pain.-continues to have but improving with treatment of infection and IVF. Echo 01/08 EF 55 2. Abnormal electrocardiogram from outside hospital with nonspecific ST-T abnormalities. 3. Probable pyelonephritis. 4. Anemia. 5. Leukocytosis. 6. Hypokalemia. 7. ? sick euthyroid-suppressed TSH/ NL Free t4 Recc: -Tele -serial ecg's -IVP PRN BB -Continue IVF hydration -Continue abx's and f/u cx data -Treat fevers/follow fever curve Problems: Consultation Date/Type/Reason Admit Date/Time Jan 07, 2017 at 13:46 Initial Consult Date 01/07/2017 Type of Consultation: Cardiology Reason for Consultation tachycardia Referring Provider: ASHWIN GUSMAN MD Exam/Review of Systems Vital Signs Vitals Vital Signs Date Time Temp Pulse Resp B/P Pulse Ox O2 Delivery O2 Flow Rate FiO2 01/10/17 12:31 102 01/10/17 11:51 98.0 20 110/70 100 01/08/17 03:34 Room Air Intake and Output 01/09/17 01/09/17 01/10/17 15:00 23:00 07:00 Intake Total 1100 ml 1975 ml 800 ml Balance 1100 ml 1975 ml 800 ml Exam Review of Systems: CONSTITUTIONAL: No fevers, chills. PULMONARY: No sob CARDIOVASCULAR: No chest pain/palpitations GASTROINTESTINAL: No nausea/vomiting. GENITOURINARY: No hematuria/dysuria. MUSCULOSKELETAL: No myagias/arthalgias. PSYCHIATRIC: The patient denies depression. NEUROLOGIC: No weakness Constitutional: alert, oriented Psych: no complaints Head: normocephalic ENMT: mucosa pink and moist Neck: supple Respiratory: diminished breath sounds Cardiovascular: regular rate and rhythm Gastrointestinal: non-tender, soft Musculoskeletal: muscle tone (normal) Extremities: edema (none) Neurological: other (No focal deficits) Results Result Diagram: 01/10/17 0555 01/10/17 0555 Results 24 hrs Laboratory Tests Test 01/10/17 05:55 White Blood Count 11.2 #H Red Blood Count 3.45 L Hemoglobin 10.0 L Hematocrit 30.5 L Mean Corpuscular Volume 88.4 Mean Corpuscular Hemoglobin 29.0 Mean Corpuscular Hemoglobin Concent 32.8 Red Cell Distribution Width 14.0 Platelet Count 348 Mean Platelet Volume 9.5 Neutrophils % 52.0 Lymphocytes % 32.6 Monocytes % 10.7 Eosinophils % 2.5 Basophils % 0.4 Nucleated Red Blood Cells % 0.0 Neutrophils # 5.8 Lymphocytes # 3.7 H Monocytes # 1.2 H Eosinophils # 0.3 Basophils # 0.1 Nucleated Red Blood Cells # 0.0 Sodium Level 138 Potassium Level 4.3 Chloride Level 106 Carbon Dioxide Level 25 Anion Gap 11 Blood Urea Nitrogen 7 Creatinine 0.53 Glucose Level 99 Calcium Level 8.8 Total Bilirubin 0.1 L Direct Bilirubin 0.00 Indirect Bilirubin 0.1 Aspartate Amino Transf (AST/SGOT) 29 Alanine Aminotransferase (ALT/SGPT) 43 Alkaline Phosphatase 128 H Total Protein 7.2 Albumin 3.4 Globulin 3.80 H Albumin/Globulin Ratio 0.89 Medications Medications Current Medications Acetaminophen 650 mg 650 mg Q6H PRN PO PAIN AND OR ELEVATED TEMP Last administered on 01/08/17 17:14; Admin Dose 650 MG; Start 01/06/17 at 20:30 Sodium Chloride (NS) 1,000 ml @ 125 mls/hr Q8H IV Last administered on 12:08; Admin Dose 125 MLS/HR; Start 01/06/17 at 20:30 Morphine Sulfate (morphine) 2 mg Q4H PRN IV PAIN; Start 01/06/17 at 20:30 Pantoprazole 40 mg 40 mg DAILY@06 IV Last administered on 01/10/17 05:40; Admin Dose 40 MG; Start 01/07/17 at 06:00 Piperacillin Sod/ Tazobactam Sod (Zosyn 3.375gm/ 100 ml (Pmx)) 100 ml @ 200 mls /hr Q6 IVPB Last administered on 01/10/17 12:03; Admin Dose 200 MLS/HR; Start 01/06/17 at 21:30 Metoprolol Tartrate (Lopressor) 5 mg Q4 PRN IV HR>110 Hold SBP<100 Last administered on 01/08/17 12:16; Admin Dose 5 MG; Start 01/07/17 at 16:30 Tobramycin TOBRAMYCIN PER PHARMACY NOTE XX ; Start 01/08/17 at 17:00 Tobramycin/Sodium Chloride (Tobramycin/NS) 110.75 ml @ 103.75 mls/hr Q24H IVPB Last administered on 01/09/17t 20:55; Admin Dose 103.75 MLS/HR; Start at 20:00 PHU GLASS January 10, 2017 14:18
--- NOTE | 2017-01-10 15:01 | RADRPT ---
Vent Rate: 104 bpm RR Interval: 0 msec UT Interval: 150 msec QRS Duration: 84 msec QT Interval: 324 msec QTC Interval: 426 msec P-R-T [place] [employer]: 34 - 51 - 50 degrees Sinus tachycardia Otherwise normal ECG Electronically Signed By: Mauro Cruz [id number]
--- NOTE | 2017-01-10 15:21 | PN ---
DATE: 01/10/2017 SUBJECTIVE: No acute changes. No fevers. The patient is alert, feels good. Denies pain, discomfo rt. LABORATORY DATA: WBC today 11.2, no shift, no bands. BUN 7, creatinine 0.53. MICROBIOLOGY: All cultures are negative. DIAGNOSTICS: Chest x-ray on admission revealed no abnormalities. Lungs were clear. ANTIMICROBIALS: The patient is on Zosyn, tobramycin. PHYSICAL EXAMINATION: GENERAL: Well-developed, well-nourished young woman who is alert, in no distress. HEENT: Head atraumatic, normocephalic. Sclerae anicteric. Buccal mucosa pink. NECK: Supple. CHEST: Rise symmetrical. Breath sounds diminished to bases. HEART: S1, S2. ABDOMEN: Soft, bowel tones present. EXTREMITIES: Without cyanosis. ASSESSMENT: 1. Acute pyelonephritis with systemic inflammatory response syndrome, white blood cell count tracin g down. 2. Status post fevers on admission. PLAN: The patient remains stable, awaiting for final cultures from [facility]. Con tinue antibiotics for now. Dictated By: IZZY CASTREJON FISCAL ACCOUNTANT for NAEEM LEON MD NI/NTS Conf#: [id number] DID#: [id number]
--- NOTE | 2017-01-10 16:46 | PDOCDIS ---
Discharge Instructions CONDITION Patient Condition: Stable HOME CARE INSTRUCTIONS: Special Diet: regular ACTIVITY: Activity Restrictions: Slowly Increase Activity FOLLOW UP/APPOINTMENTS Appointments f/u own pcp [address] cid [address] cisneros 1 wk ASHWIN GUSMAN MD January 10, 2017 16:46
[2017-01-10] MEDS ORDERED: CEPH250S33 PO (16:48)
[2017-01-10] MEDS ORDERED: ACET325T40 PO (16:48)
--- NOTE | 2017-01-10 17:02 | RADRPT ---
PROCEDURE: CT abdomen and pelvis without contrast. CLINICAL INDICATION: Abdominal pain. TECHNIQUE: CT scan of the abdomen and pelvis without contrast was performed on a multi-slice CT [facility] . Oral contrast was administered. Sagittal and coronal reformatted images were obtained fro m the axial source images. One or more of the following dose reduction techniques were used: - Automated exposure control. - Adjustment of the mA and/or kV according to patient size. - Use of iterative reconstruction technique. DLP 964.2 mGycm. CTDIvol 17.0 mGy COMPARISON: None FINDINGS: The lung bases are clear. There is limited evaluation of the solid viscera from the lack of IV con trast. There are no renal or ureteral calculi present. There is mild bilateral fat stranding in the kidney s and ureters and this is slightly more pronounced on the left side. There is also borderline wall thickening of the bladder. There is no hydronephrosis. A trace amount of fluid is seen extending i nferiorly along the left retroperitoneal fat. There is normal density of the liver with no gross focal lesion or biliary ductal dilatation. The gallbladder is unremarkable without inflammation. The spleen is unremarkable without mass. The adrenal glands are within normal limits without mass. The pancreas is unremarkable without focal lesion or surrounding inflammatory changes. There is no bowel obstruction or focal bowel inflammation. The appendix is unremarkable. There is no free air.. There are no enlarged lymph nodes. The aorta is unremarkable and there is no acute osseous abnormality. The uterus and adnexal structures within normal limits. IMPRESSION: There are no renal or ureteral calculi present with no hydronephrosis. There is indeterminate bilat eral perinephric fat stranding slightly more pronounced on the left side which could represent infla mmation or infection of the kidneys and can be correlated with urinalysis. There is no bowel obstruction or appendicitis. RPTAT: AA .Julio Basilio MD, MD Date Time Electronically viewed and signed by .Julio Basilio MD, MD on 01/10/2017 17:01 .Zak/
--- NOTE | 2017-01-10 17:09 | PN ---
Date/Time of Note Date/Time of Note DATE: 01/10/17 TIME: 17:08 Assessment/Plan VTE Prophylaxis VTE Prophylaxis Intervention: other Lines/Catheters IV Catheter Type (from Nrs): Peripheral IV Urinary Cath still in place: No Assessment/Plan Chief Complaint/Hosp Course sepsis/pyelonephrites better uti plan antibiotic ck ct abd home Problems: Subjective 24 Hr Interval Summary Cardiovascular: no complaints Gastrointestinal: no complaints Exam/Review of Systems Vital Signs Vitals Vital Signs Date Time Temp Pulse Resp B/P Pulse Ox O2 Delivery O2 Flow Rate FiO2 01/10/17 16:21 98.0 103 20 104/73 100 01/08/17 03:34 Room Air Intake and Output 01/09/17 01/09/17 01/10/17 15:00 23:00 07:00 Intake Total 1100 ml 1975 ml 800 ml Balance 1100 ml 1975 ml 800 ml Exam Neck: supple Respiratory: clear to auscultation Cardiovascular: regular rate and rhythm Gastrointestinal: bowel sounds, soft Results Result Diagram: 01/10/17 0555 01/10/17 0555 Results 24 hrs Laboratory Tests Test 01/10/17 05:55 White Blood Count 11.2 #H Red Blood Count 3.45 L Hemoglobin 10.0 L Hematocrit 30.5 L Mean Corpuscular Volume 88.4 Mean Corpuscular Hemoglobin 29.0 Mean Corpuscular Hemoglobin Concent 32.8 Red Cell Distribution Width 14.0 Platelet Count 348 Mean Platelet Volume 9.5 Neutrophils % 52.0 Lymphocytes % 32.6 Monocytes % 10.7 Eosinophils % 2.5 Basophils % 0.4 Nucleated Red Blood Cells % 0.0 Neutrophils # 5.8 Lymphocytes # 3.7 H Monocytes # 1.2 H Eosinophils # 0.3 Basophils # 0.1 Nucleated Red Blood Cells # 0.0 Sodium Level 138 Potassium Level 4.3 Chloride Level 106 Carbon Dioxide Level 25 Anion Gap 11 Blood Urea Nitrogen 7 Creatinine 0.53 Glucose Level 99 Calcium Level 8.8 Total Bilirubin 0.1 L Direct Bilirubin 0.00 Indirect Bilirubin 0.1 Aspartate Amino Transf (AST/SGOT) 29 Alanine Aminotransferase (ALT/SGPT) 43 Alkaline Phosphatase 128 H Total Protein 7.2 Albumin 3.4 Globulin 3.80 H Albumin/Globulin Ratio 0.89 Medications Medications Current Medications Acetaminophen 650 mg 650 mg Q6H PRN PO PAIN AND OR ELEVATED TEMP Last administered on 01/08/17 17:14; Admin Dose 650 MG; Start 01/06/17 at 20:30 Sodium Chloride (NS) 1,000 ml @ 125 mls/hr Q8H IV Last administered on 12:08; Admin Dose 125 MLS/HR; Start 01/06/17 at 20:30 Morphine Sulfate (morphine) 2 mg Q4H PRN IV PAIN; Start 01/06/17 at 20:30 Pantoprazole 40 mg 40 mg DAILY@06 IV Last administered on 01/10/17 05:40; Admin Dose 40 MG; Start 01/07/17 at 06:00 Piperacillin Sod/ Tazobactam Sod (Zosyn 3.375gm/ 100 ml (Pmx)) 100 ml @ 200 mls /hr Q6 IVPB Last administered on 01/10/17 12:03; Admin Dose 200 MLS/HR; Start 01/06/17 at 21:30 Metoprolol Tartrate (Lopressor) 5 mg Q4 PRN IV HR>110 Hold SBP<100 Last administered on 01/08/17 12:16; Admin Dose 5 MG; Start 01/07/17 at 16:30 Tobramycin TOBRAMYCIN PER PHARMACY NOTE XX ; Start 01/08/17 at 17:00 Tobramycin/Sodium Chloride (Tobramycin/NS) 110.75 ml @ 103.75 mls/hr Q24H IVPB Last administered on 01/09/17 20:55; Admin Dose 103.75 MLS/HR; Start at 20:00 ASHWIN GUSMAN MD January 10, 2017 17:09
--- NOTE | 2017-01-10 17:42 | QN ---
Documentation Comment [id number] ASHWIN GUSMAN MD January 10, 2017 17:42
--- NOTE | 2017-01-11 02:43 | DS ---
DATE OF ADMISSION: 01/07/2017 DATE OF DISCHARGE: 01/10/2017 HOSPITAL COURSE: The patient with no significant past medical history who was admitted with sepsis, noted to have pyelonephritis. Started on IV antibiotic. The patient also received tobramycin IV. Was seen by Dr. Lozano in consultation. The patient had sinus tachycardia, was seen by Dr. Edmond in consultation. Received aggressive IV fluid, antibiotic. The patient's CT of the abdomen was done, which was negative for any kidney stone, mass. The patient was cleared by Dr. Lozano to be discharged home. DISCHARGE DIAGNOSES: 1. Escherichia coli pyelonephritis. 2. Dehydration. 3. Status post sinus tachycardia. 4. The patient sirs resolving. DISCHARGE MEDICATIONS: The patient to continue Keflex. DISCHARGE INSTRUCTIONS: Follow up with PCP and Dr. Lozano and Dr. Edmond as an outpatient. DISCHARGE CONDITION: The patient is stable at the time of discharge. Dictated By: ASHWIN FERRIS/CECILIA Conf#: [id number] DID#: [id number] TYLER
== END 2017-01-10 17:55 | disposition home or self-care (01) | DRG 872 ==
LOC: INTOOBSV 18:31 → TEL 18:31 → OBSVTOIN 01-07 13:46 → TEL 01-07 21:03
PROVIDERS: ADMIT Internal Medicine Nephrology; ATTEND Internal Medicine Nephrology
DX: A41.9 Sepsis, unspecified organism (principal); N12 Tubulo-interstitial nephritis, not specified as acute or chronic; N39.0 Urinary tract infection, site not specified; E87.6 Hypokalemia; E66.9 Obesity, unspecified; Z68.32 Body mass index [BMI] 32.0-32.9, adult; R00.0 Tachycardia, unspecified; D64.9 Anemia, unspecified; D72.829 Elevated white blood cell count, unspecified
CPT/HCPCS: 71010; 74176; 80048; 80053; 80061; 80200; 81001; 81003; 83605; 84436; 84439; 84443; 84481; 85025; 87040; 87086; 93005; 93306; 99217; G0378; C9113; J1956; J2060; J2543; J3260; J7030; J7040